=== PATIENT | female | born 1940 | race Caucasian/White ===

== ENCOUNTER 2020-03-02 17:21 | Emergency (ER) | payer OTHER, SELFPAY ==
[2020-03-02] VITALS (10 sets, daily range): BP systolic 149–160; BP diastolic 78–92; PULSE 76–92; RESP 14–24; TEMP 35.8; O2SAT 93–96
--- NOTE | ~2020-03-02 | XR_ITS ---
EXAMINATION: XR elbow LT 2V EXAM DATE: 03/02/2020 17:47 INDICATION: Fall, open fracture. TECHNIQUE: Frontal and lateral projections of the 2 orthogonal projections of the left elbow. There is no prior study for comparison. FINDINGS: There is acute comminuted fracture extending through the left humeral distal metaphysis bot h transverse and direction and also vertical component bisecting the elbow joint. There is complete m edial displacement. There appears to be posterolateral laceration and reportedly this is an open post traumatic fracture. No definite olecranon or radial head fracture. Soft tissue swelling, elbow joint hemarthrosis. IMPRESSION: Acute comminuted displaced left humeral distal metaphyseal fracture into elbow joint. Reviewed, dictated and finalized at location A. SCIENCE AND PLANNING IMPRESSION: Acute comminuted displaced left humeral distal metaphyseal fractur e into elbow joint.
--- NOTE | ~2020-03-02 | CT_ITS ---
EXAMINATION: CT brain wo con, CT facial bones wo con EXAM DATE: 03/02/2020 19:01 INDICATION: Fall, head injury. TECHNIQUE: Spiral CT of the head was performed without contrast. Axial, coronal and sagittal images were reviewed. Spiral CT of the facial bones was performed without contrast. Axial images were revie wed. Coronal and sagittal reformatted images were also reviewed. The dose-length product (DLP) for this examination was 605.33 (accession [id number]), 281.08 (accession [id number]) mGy-cm. Th e exposure was tailored according to patient size, and iterative reconstruction (ASIR) was used as ad ditional dose reduction technique. There is no prior study for comparison. FINDINGS: HEAD CT: The right-sided of tentorium measures about 2 mm in thickness, thicker and more conspicuous than the contralateral side which raises possibility of a tiny acute subdural hematoma. Consider foll ow-up CT in 1-2 days. 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 There is no acute intra parenchymal hemorrhage. No evidence of intraparenchymal brain mass lesion. No evidence of acute inf arction. There is moderate periventricular and subcortical hypodensity, nonspecific but probably rela precious to small vessel ischemic disease. There is intracranial carotid arteriosclerosis. There is no mass effect or midline shift. There is no obstructive hydrocephalus suspected. There are no calvari al acute fractures. Partially calcified right vertex scalp sebaceous cyst. FACIAL CT: There are no displaced acute nasal bone fractures. The mandible, sinuses and orbits are i ntact. There is right maxillary sinus surgical window procedure. The orbits, globes and extraocular m uscles are unremarkable. There may be some swelling over the nose. Mild bilateral maxillary sinus mucoperiosteal thickening. Mild nasal septal deviation. IMPRESSION: 1. Possible thin right tentorial acute subdural hematoma. Consider 1-2 day follow-up CT. 2. Suspect soft tissue swelling over the nose. Reviewed, dictated and finalized at location A. ER SKATER IMPRESSION: 1. Possible thin right tentorial acute subdural hematoma. Consider 1-2 day fol low-up CT. 2. Suspect soft tissue swelling over the nose.
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
[2020-03-02] MEDS: ceFAZolin SODIUM 1 GM VIAL IV PUSH (17:53)
[2020-03-02] MEDS: fentaNYL CITRATE INJ (*CRX) 100 MCG/2 ML VIAL 50 MCG IV PUSH ×2 (17:53→19:28)
[2020-03-02] MEDS: diphenhydrAMINE HCl INJ 50 MG/ML VIAL 25 MG IV PUSH (17:53)
[2020-03-02] MEDS: SODIUM CHLORIDE 0.9% IV 1,000 ML 999 ML IV CONT (17:53)
--- NOTE | 2020-03-02 19:00 | PC.NURSE ---
PT IN CT, WILL MEDICATE PER PROVIDER ORDER AND PREPARE TO SPLINT UPON RETURN.
--- NOTE | 2020-03-02 19:07 | PC.NURSE ---
REPORT TO STEPHANIE AYALA AT THIS TIME, SHE HAS ASSUMED PT CARE.
[2020-03-02] MEDS: TETANUS,DIPHTHERIA,AC PERTUSSIS ADULT (0.5 ML) BOOSTRIX IM (19:33)
--- NOTE | 2020-03-02 19:48 | PC.NURSE ---
Long arm splint applied to left arm by Maegan--pulses palp, patient able to wiggle fingers
--- NOTE | 2020-03-02 20:30 | PC.NURSE ---
guy was to transfer patient to [facility]. due to another patient needing transportation faster guy had to take other patient before her. I contacted [facility] to transfer her and their eta is 15 minutes
--- NOTE | 2020-03-02 20:39 | PC.NURSE ---
[facility] has arrived
== END 2020-03-02 20:40 | disposition short-term general hospital (02) ==
PROVIDERS: Emergency Provider Emergency Medicine
DX: S42.402A Unspecified fracture of lower end of left humerus, initial encounter for closed fracture (principal); W18.30XA Fall on same level, unspecified, initial encounter; S09.90XA Unspecified injury of head, initial encounter; Z23 Encounter for immunization
CPT/HCPCS: 29105; 70450; 70486; 73070; 90471; 90715; 96361; 96374; 96375; 96376; 99285; J0690; J1200; J3010; J7030